=== PATIENT | male | born 1975 | race Hispanic/Latino ===

== ENCOUNTER 2019-12-27 20:15 | Inpatient (IN) | payer SELFPAY ==
[~2019-12-27] VITALS: Ht 165.1 cm; Wt 65.6 kg
[2019-12-27] MEDS ORDERED: ACETAMINOPHEN 325 MG TAB PO ONE (20:45)
[2019-12-27] MEDS ORDERED: SODIUM CHLORIDE 0.9% 1000ML 1,000 ML IV STA (20:54)
[2019-12-27] MEDS ORDERED: FAMOTIDINE 20 MG/2 ML VIAL IV STA (20:54)
[2019-12-27 20:57] LABS: BASOPHILS % 0.2 % (0.0-1.0); EOSINOPHILS % 0.1 % (0.0-6.0); HEMATOCRIT 44.4 % (38.2-49.6); HEMOGLOBIN 15.1 g/dL (14.0-18.0); LYMPHOCYTES # (AUTO) 1.1 (1.0-3.2); LYMPHOCYTES % 8.2 % (18.0-39.1); MEAN CORPUSCULAR HEMOGLOBIN 30.4 pg (28-32); MEAN CORPUSCULAR VOLUME 89.3 fL (81-99); MONOCYTES # (AUTO) 1.2 (0.2-0.8); MONOCYTES % 9.5 % (4.4-11.3); NEUTROPHILS # (AUTO) 10.4 (2.1-6.9); NEUTROPHILS % 81.5 % (38.7-80.0); PLATELET COUNT 205 x10e3/uL (140-360); RED BLOOD COUNT 4.97 x10e6/uL (4.3-5.7); RED CELL DISTRIBUTION WIDTH 12.5 % (11.7-14.4)
[2019-12-27 20:59] LABS: BILIRUBIN,URINE 1+ (NEGATIVE); CLARITY,URINE SL CLOUDY (CLEAR); COLOR,URINE STRAW (YELLOW); KETONES,URINE 2+ (NEGATIVE); LEUKOCYTE ESTERASE ,URINE NEGATIVE (NEGATIVE); NITRITE,URINE NEGATIVE (NEGATIVE); PROTEIN,URINE DIPSTICK NEGATIVE (NEGATIVE); URINE UROBILINOGEN 0.2 mg/dL (0.2 - 1)
[2019-12-27] MEDS ORDERED: DIATRIZOATE MEGL/DIATRIZOA SOD 30 ML BTL PO ONE (20:59)
[2019-12-27] MEDS ORDERED: PIPER-TAZ 3.375 GM 50 ML IV STA (21:03)
[2019-12-27 21:10] LABS: ALANINE AMINOTRANSFERASE 49 IU/L (0-55); ALBUMIN 4.5 g/dL (3.5-5.0); ALBUMIN/GLOBULIN RATIO 1.4 (0.8-2.0); ALKALINE PHOSPHATASE 70 IU/L (40-150); ANION GAP 14.5 mmol/L (8-16); BLOOD UREA NITROGEN 10 mg/dL (7-26); BUN/CREATININE RATIO 9 (6-25); CALCIUM 9.3 mg/dL (8.4-10.2); CARBON DIOXIDE 24 mmol/L (22-29); CHLORIDE 103 mmol/L (98-107); CREATININE, SERUM 1.06 mg/dL (0.72-1.25); EST GLOMERULAR FILTRATION RATE > 60 ML/MIN (60-); GLUCOSE 98 mg/dL (74-118); POTASSIUM 3.5 mmol/L (3.5-5.1); SODIUM 138 mmol/L (136-145)
[2019-12-27 21:15] LABS: BACTERIA,URINE MODERATE /HPF; EPITHELIAL CELLS,URINE MODERATE /LPF; MUCUS,URINE MODERATE (RARE)
[2019-12-27] MEDS ORDERED: IOPAMIDOL 370 MG/ML 200 ML INFUS..BTL INJ ONE (22:23)
[2019-12-27] MEDS ORDERED: SODIUM CHLORIDE 0.9% 50ML 50 ML ONE (22:24)
--- NOTE | 2019-12-27 23:52 | Diagnostic Imaging Report ---
CT Abdomen And Pelvis with Intravenous Contrast INDICATION: Right upper abdominal pain/fever, history of diverticulitis ^PAIN ^20191227 ^2 TECHNIQUE: Thin collimation axial images obtained from the diaphragm to the level of the pubic symphysis following the uneventful administration of 100 cc of low osmolar, nonionic intravenous contrast. Enteric contrast was also administered. Dose reduction techniques used: Automated exposure control, adjustment of the mAs and/or kVp according to patient size, standardized low-dose protocol, and/or iterative reconstruction technique. RADIATION DOSE: Total DLP: 250.3 mGy*cm Estimated effective dose: (DLP x 0.015 x size factor) mSv CTDIvol has been reviewed. It is below the limits set by the Radiation Protocol Committee (RPC). COMPARISON: None. ABDOMEN FINDINGS: Lung Bases: Clear. The visualized portions of the mediastinum are normal.. Liver: Normal attenuation. Several low attenuating lesions measure up to 11 mm and may represent cysts. A few subcentimeter solid lesions cannot be excluded. Gallbladder: Present and appears normal. No biliary ductal dilatation. Pancreas: Normal attenuation without mass or ductal dilatation. Spleen: Normal in size. No evidence of mass.. Adrenal Glands: No evidence for mass. Kidneys: Right: Normal enhancement. No soft tissue mass. No hydronephrosis. Left: Normal enhancement. No soft tissue mass. No hydronephrosis. Lymph Nodes: There is a 9 mm inferior mesenteric vein lymph node. No enlarged upper abdominal or retroperitoneal lymph nodes. Aorta: Normal in diameter PELVIS FINDINGS: Bowel: Stomach: Contains enteric contrast and is normal. Small Bowel: There is enteric contrast extending to the terminal ileum. Intussusception of the proximal jejunum. Large Bowel: Enteric contrast extends to the mid descending colon. There are diverticula in the descending colon and sigmoid colon. 7-8 cm segment of mural thickening of the mid sigmoid colon resulting in luminal narrowing. There is adjacent pericolonic inflammation. A low attenuating lesion or fluid collection within the inferior wall of the mid sigmoid colon measures 1.2 x 2.3 cm. No significant mural hyperemia. Appendix: Normal. Bladder: No intraluminal air. Mild thickening of the bladder dome. There is inflammation of the fat plane between the sigmoid colon and bladder dome. Peritoneum/retroperitoneum: No free fluid or fluid collection.. Bones: Mild degenerative changes of the spine at L5-S1. There is a bone island in the posterior left acetabulum. Soft tissues: Small fat-containing left inguinal hernia. IMPRESSION: 1. Acute/subacute diverticulitis of the mid sigmoid colon with intramural diverticular abscess. Colonoscopy is recommended to exclude neoplasm. 2. Reactive thickening of the bladder dome secondary to diverticulitis. No CT evidence of fistulous communication the sigmoid colon. 3. Intussusception of the jejunum, likely transient, given the absence of bowel obstruction. 4. Several low attenuating subcentimeter hepatic lesions are too small to characterize. These may be better characterized on an outpatient liver MRI. Signed by: Dr. Orquidea Campbell MD on 12/27/2019 11:49 PM
[2019-12-28] VITALS (10 sets, daily range): BP systolic 114–136; BP diastolic 57–88
[2019-12-28] MEDS ORDERED: MORPHINE SULFATE 2 MG/ML SYR 1ML IV PRN (00:30)
[2019-12-28] MEDS ORDERED: CIPROFLOXACIN 400 MG/D5W 200ML 200 ML IV ONE (00:30)
[2019-12-28] MEDS ORDERED: ONDANSETRON HCL INJ 2MG/ML 2ML 2 MG/ML VIAL IV PRN (00:30)
[2019-12-28] MEDS ORDERED: METRONIDAZOLE 500MG/NS 100ML 100 ML IV ONE (00:30)
[2019-12-28] MEDS: SODIUM CHLORIDE 0.9% 1000ML 1,000 ML IV SCH ×3 (00:36→15:43)
--- OUTSIDE RECORDS SUMMARY | 2019-12-28 00:43 | XMS REPORT ---
Author [facility] Address Unknown Phone Unavailable Care Team Providers Care Line Prep Cook Name Role Phone BOLA VALENCIA Unavailable Unavailable Problems This patient has no known problems. Allergies, Adverse Reactions, Alerts This patient has no known allergies or adverse reactions. Medications This patient has no known medications. Results Test Description Test Time Test Comments Text Results Atomic Results Result Comments CT ABDOMEN/PELVIS W 2019-12-27 23:38:00 [place] [address] Patient Name: GUILLERMO PIZARRO MR #: [id number] : 1975 Age/Sex: 44/M Req #: [id number] Adm Physician: Ordered by: MARINA BERNAL NP Report #: [id number] Location: ER Room/Bed: Procedure: [id number] CT/CT ABDOMEN/PELVIS W Exam Date: 12/27/19 Exam Time: 2234 REPORT STATUS: Signed CT Abdomen And Pelvis with Intravenous Contrast I NDICATION: Right upper abdominal pain/fever, history of diverticulitis PAIN 20191227 TECHNIQUE: Thin collimation axial images obtained from the diaphragm to the level of the pubic symphysis following the uneventful administration of 100 cc of low osmolar, nonionic intravenous contrast. Enteric contrast was also administered. Dose reduction techniques used: Automated exposure control, adjustment of the mAs and/or kVp according to patient size, standardized low-dose protocol, and/or iterative reconstruction technique. RADIATION DOSE: Total DLP: 250.3 mGy*cm Estimated effective dose: (DLP x 0.015 x size factor) mSv CTDIvol has been reviewed. It is below the limits set by the Radiation Protocol Committee (RPC). COMPARISON: None. ABDOMEN FINDINGS: Lung Bases: Clear. The visualized portions of the mediastinum are normal.. Liver: Normal attenuation. Several low attenuating lesions measure up to 11 mm and may represent cysts. A few subcentimeter solid lesions cannot be excluded. Gallbladder: Present and appears normal. No biliary ductal dilatation. Pancreas: Normal attenuation without mass or ductal dilatation. Spleen: Normal in size. No evidence of mass.. Adrenal Glands: No evidence for mass. Kidneys: Right: Normal enhancement. No soft tissue mass. No hydronephrosis. Left: Normal enhancement. No soft tissue mass. No hydronephrosis. Lymph Nodes: There is a 9 mm inferior mesenteric vein lymph node. No enlarged upper abdominal or retroperitoneal lymph nodes. Aorta: Normal in diameter PELVIS FINDINGS: Bowel: Stomach: Contains enteric contrast and is normal. Small Bowel: There is enteric contrast extending to the terminal ileum. Intussusception of the proximal jejunum. Large Bowel: Enteric contrast extends to the mid descending colon. There are diverticula in the descending colon and sigmoid colon. 7-8 cm segment of mural thickening of the mid sigmoid colon resulting in luminal narrowing. There is adjacent pericolonic inflammation. A low attenuating lesion or fluid collection within the inferior wall of the mid sigmoid colon measures 1.2 x 2.3 cm. No significant mural hyperemia. Appendix: Normal. Bladder: No intraluminal air. Mild thickening of the bladder dome. There is inflammation of the fat plane between the sigmoid colon and bladder dome. Peritoneum/retroperitoneum: No free fluid or fluid collection.. Bones: Mild degenerative changes of the spine at L5-S1. There is a bone island in the posterior left acetabulum. Soft tissues: Small fat-containing left inguinal hernia. IMPRESSION: 1. Acute/subacute diverticulitis of the mid sigmoid colon with intramural diverticular abscess. Colonoscopy is recommended to exclude neoplasm. 2. Reactive thickening of the bladder dome secondary to diverticulitis. No CT evidence of fistulous communication the sigmoid colon. 3. Intussusception of the jejunum, likely transient, given the absence of bowel obstruction. 4. Several low attenuating subcentimeter hepatic lesions are too small to characterize. These may be better characterized on an outpatient liver MRI. Signed by: Dr. Marciano Campbell MD on 12/27/2019 11:49 PM Dictated By: MARCIANO CAMPBELL MD 48 Transcribed By: MAYE on 12/27/192348 COPY TO: MARINA BERNAL NP
--- NOTE | 2019-12-28 00:50 | NUR ---
Recieved patient from ER via stretcher. Patient stable, oriented to room and environment. Instructed to call for assistance or on the onset of pain or SOB. Call light within reach. Will continue to monitor.
--- NOTE | 2019-12-28 07:00 | NUR ---
PATIENT IS ALERT, AWAKE, AND IN STABLE CONDITION WITH NO S/S OF RESPIRATORY DISTRESS. PATIENT C/O ABD DISCOMFORT 5/10 BUT IS REFUSING PAIN MEDICATION AT THIS TIME. IV FLUIDS INFUSING. CALL LIGHT IS WITHIN REACH, PATIENT INSTRUCTED TO CALL FOR ASSISTANCE NEEDED.
--- NOTE | 2019-12-28 07:10 | NUR ---
Bedside report and rounding completed with oncoming nurse. Patient in bed with call light within reach. Bed locked and in lowest position. No issues or concerns noted.
[2019-12-28] MEDS ORDERED: METRONIDAZOLE 500MG/NS 100ML 100 ML IV SCH (09:00)
[2019-12-28] MEDS ORDERED: CIPROFLOXACIN 400 MG/D5W 200ML 200 ML IV SCH (12:00)
[2019-12-28] MEDS: CIPROFLOXACIN 400 MG/D5W 200ML 200 ML IV SCH (12:22)
--- NOTE | 2019-12-28 12:40 | NUR ---
Pt. expressed no spiritual or emotional concerns at this time. Pt requested reading material. Provided oriental orthodox reading material and information on how to reach general lot attendant, if needed. Pt expressed appreciation for visit. No need to follow at this time. HANS ALVAREZ Compliance Tester Spiritual Care Department O: [phone]
--- NOTE | 2019-12-28 15:24 | NUR ---
GAVE PACKET OF INFORMATION WITH COMMUNITY RESOURCES FOR ASSISTANCE WITH LOW TO NO INCOME TO PATIENT. RESOURCES THAT PATIENT MAY BE ABLE TO FOLLOW UP UPON DISCHARGE. PT EDUCATED ON EACH RESOURCE AND UNDERSTANDING HOW TO FOLLOW UP TO SEE IF QUALIFIED FOR EACH RESOURCE.
[2019-12-28] MEDS: METRONIDAZOLE 500MG/NS 100ML 100 ML IV SCH (15:42)
--- NOTE | 2019-12-28 19:15 | NUR ---
Bedside report and rounding completed with offgoing nurse. Patient in bed with call light within reach. Bed locked and in lowest position. No issues or concerns noted.
--- NOTE | 2019-12-28 19:19 | NUR ---
PATIENT IN STABLE CONDITION WITH NO S/S OF RESPIRATORY DISTRESS. NO PAIN VOICED. IV FLUIDS INFUSING. CALL LIGHT IS WITHIN REACH, PATIENT INSTRUCTED TO CALL FOR ASSISTANCE NEEDED. BEDSIDE SHIFT REPORT GIVEN TO ONCOMING NURSE.
--- NOTE | 2019-12-28 19:43 | NUR ---
Patient requesting tylenol. Spoke with Ildefonso regarding request. Will put in new order for tylenol.
[2019-12-28] MEDS: ACETAMINOPHEN 325 MG TAB PO PRN (20:23)
[2019-12-29] VITALS (7 sets, daily range): BP systolic 106–149; BP diastolic 58–97
[2019-12-29] MEDS: CIPROFLOXACIN 400 MG/D5W 200ML 200 ML IV SCH ×2 (01:00→11:50)
[2019-12-29] MEDS: SODIUM CHLORIDE 0.9% 1000ML 1,000 ML IV SCH ×2 (02:01→16:18)
[2019-12-29] MEDS: METRONIDAZOLE 500MG/NS 100ML 100 ML IV SCH ×2 (04:32→16:00)
[2019-12-29 05:56] LABS: BASOPHILS % 0.3 % (0.0-1.0); EOSINOPHILS # (AUTO) 0.1 (0.0-0.4); EOSINOPHILS % 0.8 % (0.0-6.0); HEMATOCRIT 42.4 % (38.2-49.6); HEMOGLOBIN 14.1 g/dL (14.0-18.0); LYMPHOCYTES # (AUTO) 1.2 (1.0-3.2); LYMPHOCYTES % 13.4 % (18.0-39.1); MEAN CORPUSCULAR HEMOGLOBIN 30.4 pg (28-32); MEAN CORPUSCULAR HGB CONC 33.3 g/dL (31-35); MEAN CORPUSCULAR VOLUME 91.4 fL (81-99); MONOCYTES # (AUTO) 1.3 (0.2-0.8); MONOCYTES % 14.7 % (4.4-11.3); NEUTROPHILS # (AUTO) 6.1 (2.1-6.9); NEUTROPHILS % 70.3 % (38.7-80.0); PLATELET COUNT 184 x10e3/uL (140-360); RED BLOOD COUNT 4.64 x10e6/uL (4.3-5.7); RED CELL DISTRIBUTION WIDTH 12.8 % (11.7-14.4)
[2019-12-29] MEDS: ACETAMINOPHEN 325 MG TAB PO PRN (06:00)
[2019-12-29 06:31] LABS: ALANINE AMINOTRANSFERASE 33 IU/L (0-55); ALBUMIN 3.4 g/dL (3.5-5.0); ALBUMIN/GLOBULIN RATIO 1.1 (0.8-2.0); ALKALINE PHOSPHATASE 58 IU/L (40-150); ANION GAP 13.5 mmol/L (8-16); BLOOD UREA NITROGEN 6 mg/dL (7-26); BUN/CREATININE RATIO 7 (6-25); CALCIUM 8.5 mg/dL (8.4-10.2); CARBON DIOXIDE 26 mmol/L (22-29); CHLORIDE 106 mmol/L (98-107); CHOL/HDL RATIO 4.5 (3.9-4.7); CHOLESTEROL 161 MD/DL (0-199); CREATININE, SERUM 0.83 mg/dL (0.72-1.25); EST GLOMERULAR FILTRATION RATE > 60 ML/MIN (60-); GLUCOSE 99 mg/dL (74-118); HDL CHOLESTEROL 36 MG/DL (40-60); LDL CHOLESTEROL 112 MG/DL (60-130); MAGNESIUM 1.7 MG/DL (1.3-2.1); POTASSIUM 3.5 mmol/L (3.5-5.1); SODIUM 142 mmol/L (136-145); TRIGLYCERIDES 65 MG/DL (0-149)
[2019-12-29 06:54] LABS: THYROID STIMULATING HORMONE 0.431 uIU/mL (0.350-4.940)
--- NOTE | 2019-12-29 07:20 | NUR ---
PT UP IN BED NO DISTRESS NOTED DENIES PAIN,DR KUMAR HERE NO NEW ORDERS
--- NOTE | 2019-12-29 09:05 | Diagnostic Imaging Report ---
EXAM: US GALLBLADDER DATE: 12/29/2019 12:00 AM INDICATION: Abdominal pain COMPARISON: CT abdomen/pelvis with contrast from 12/27/2019 FINDINGS: The visualized pancreas appears unremarkable. The liver is normal in size measuring 14.6 cm in length. Hepatic echogenicity is within normal limits. There is a 1.2 x 0.9 x 1.3 cm well-defined, echogenic lesion identified within the left hepatic lobe. This lesion likely correlates with the small low-attenuation lesion noted on the recent prior CT examination. Additionally, there are 2 anechoic cysts identified within the right hepatic lobe measuring 1.1 and 1.0 cm. The main portal vein is patent with antegrade flow and diameter of 0.9 cm, within normal limits. The gallbladder is unremarkable. There is no evidence for cholelithiasis, gallbladder wall thickening, or pericholecystic fluid. There is no intra or extra hepatic biliary ductal dilatation. The common bile duct measures 3 mm. Sonographic Medrano's sign is negative. The right kidney is normal in size measuring 10.9 x 4.8 x 4.1 cm with normal cortical thickness and echogenicity. There is no evidence for solid renal, hydronephrosis, or shadowing likely within the right kidney. The visualized portions the IVC and aorta are within normal limits. There is no ascites visualized. IMPRESSION: Well-defined, echogenic lesion identified within the left hepatic lobe measuring up to 1.3 cm which is not definitively characterized on this examination but may represent a hemangioma. If patient has history of hepatic dysfunction or prior malignancy, recommend further evaluation with dedicated liver CT or MRI. Otherwise, unremarkable renal ultrasound examination. Signed by: Dr. Quirino Unger MD on 12/29/2019 9:02 AM
[2019-12-29] MEDS ORDERED: POTASSIUM CHLORIDE 20 MEQ TAB CR PO ONE (10:35)
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
--- NOTE | 2019-12-29 12:30 | NUR ---
PT UP IN BED DENIES PAIN,NO DISTRESS NOTED.
--- NOTE | 2019-12-29 17:23 | NUR ---
NO CHANGE IN STATUS,NO C/O PAIN.
--- NOTE | 2019-12-29 20:00 | NUR ---
Received change of shift report from AM nurse. Walking rounds completed.
[2019-12-30] VITALS (8 sets, daily range): BP systolic 113–134; BP diastolic 69–90
--- NOTE | 2019-12-30 | NUR ---
Patient up to the shower with no difficulty noted.
[2019-12-30] MEDS: METRONIDAZOLE 500MG/NS 100ML 100 ML IV SCH (04:04)
[2019-12-30] MEDS: SODIUM CHLORIDE 0.9% 1000ML 1,000 ML IV SCH ×2 (04:37→23:21)
--- NOTE | 2019-12-30 05:07 | NUR ---
Patient resting quitly at this time. Continue monitor.
--- NOTE | 2019-12-30 07:30 | NUR ---
PATIENT IN BED SLEEPING. NO S/S OF DISCOMFORT. RESP EVEN.
--- NOTE | 2019-12-30 08:30 | NUR ---
DR. KUMAR AT BEDSIDE. ORDERS WRITTEN.
[2019-12-30] MEDS ORDERED: CITRATE OF MAGNESIA 300ML BOTTLE PO SCH (08:50)
--- NOTE | 2019-12-30 11:37 | NUR ---
Consent form signed. Patient acknowledge understanding.
[2019-12-30] MEDS: NEOMYCIN SULFATE 500 MG TAB PO SCH ×3 (12:00→23:21)
[2019-12-30] MEDS: METRONIDAZOLE 500 MG TAB PO SCH ×3 (12:00→23:21)
[2019-12-30] MEDS: CIPROFLOXACIN 400 MG/D5W 200ML 200 ML IV SCH ×3 (13:08→23:21)
[2019-12-30] MEDS ORDERED: MINERAL OIL 132 ML BTL PR SCH (14:00)
--- NOTE | 2019-12-30 17:27 | NUR ---
PT UP IN BED NO DISTRESS NOTED ,DENIES PAIN
[2019-12-31] VITALS (8 sets, daily range): BP systolic 96–144; BP diastolic 57–76
--- NOTE | 2019-12-31 06:00 | NUR ---
PATIENT NOT WILLING TO TAKE CHG SHOWER THROUGHOUT NIGHT, STATES HE WILL DO IT AROUND 10 AM, STOOLS MOSTLY LOOSE/CLEAR WITH SMALL PIECES OF SOFT/SOLID STOOL
[2019-12-31 07:10] LABS: BASOPHILS % 0.7 % (0.0-1.0); EOSINOPHILS # (AUTO) 0.1 (0.0-0.4); EOSINOPHILS % 1.3 % (0.0-6.0); HEMATOCRIT 44.7 % (38.2-49.6); HEMOGLOBIN 15.3 g/dL (14.0-18.0); LYMPHOCYTES # (AUTO) 1.6 (1.0-3.2); MEAN CORPUSCULAR HEMOGLOBIN 30.7 pg (28-32); MEAN CORPUSCULAR HGB CONC 34.2 g/dL (31-35); MEAN CORPUSCULAR VOLUME 89.6 fL (81-99); MONOCYTES # (AUTO) 0.7 (0.2-0.8); MONOCYTES % 11.4 % (4.4-11.3); NEUTROPHILS # (AUTO) 3.6 (2.1-6.9); NEUTROPHILS % 60.3 % (38.7-80.0); PLATELET COUNT 233 x10e3/uL (140-360); RED BLOOD COUNT 4.99 x10e6/uL (4.3-5.7); RED CELL DISTRIBUTION WIDTH 12.4 % (11.7-14.4)
[2019-12-31 07:28] LABS: ANION GAP 13.2 mmol/L (8-16); BLOOD UREA NITROGEN 9 mg/dL (7-26); BUN/CREATININE RATIO 11 (6-25); CARBON DIOXIDE 24 mmol/L (22-29); CHLORIDE 107 mmol/L (98-107); CREATININE, SERUM 0.83 mg/dL (0.72-1.25); EST GLOMERULAR FILTRATION RATE > 60 ML/MIN (60-); GLUCOSE 83 mg/dL (74-118); MAGNESIUM 1.9 MG/DL (1.3-2.1); PHOSPHORUS 3.6 MG/DL (2.3-4.7); POTASSIUM 4.2 mmol/L (3.5-5.1); SODIUM 140 mmol/L (136-145)
[2019-12-31] MEDS: SODIUM CHLORIDE 0.9% 1000ML 1,000 ML IV SCH (09:14)
[2019-12-31] MEDS: METRONIDAZOLE 500MG/NS 100ML 100 ML IV SCH ×2 (09:15→21:00)
[2019-12-31] MEDS: CIPROFLOXACIN 400 MG/D5W 200ML 200 ML IV SCH ×2 (12:15→23:21)
[2019-12-31] MEDS ORDERED: BUPIVACAINE HCL 0.5% INJ 30 ML VIAL INJ ONE (12:24)
--- NOTE | 2019-12-31 12:24 | NUR ---
Pt being transferred to OR at this time for procedure with Dr. Ga. Pt is aox4 and able to verbalize needs. Pt denies any pain at time of transfer. 0 s/s of acute distress noted.
[2019-12-31] MEDS ORDERED: NALOXONE HCL INJ 0.4 MG/ML AMP IV PRN (14:15)
[2019-12-31] MEDS ORDERED: KETOROLAC TROMETHAMINE 30 MG/ML VIAL IV PRN (14:15)
[2019-12-31] MEDS ORDERED: ACETAMINOPHEN 1000 MG/100 ML IV PRN (14:15)
[2019-12-31] MEDS ORDERED: DIPHENHYDRAMINE HCL 25 MG CAP PO PRN (14:15)
[2019-12-31] MEDS ORDERED: MEPERIDINE HCL INJ 25 MG/ML VIAL ONE (14:29)
--- NOTE | 2019-12-31 15:00 | NUR ---
Pt received from PACU at this time. Pt is aox3, pt is still a little drowsy but wakes easily. Dressing to lower abdomen is intact with a little bit of dry blood noted. Ruiz catheter in place and draining light yellow clear urine.
[2019-12-31] MEDS ORDERED: DEXAMETHASONE SOD PHOS INJ 4 MG/ML VIAL ONE (15:17)
[2019-12-31] MEDS ORDERED: PROPOFOL IV EMULSION 10 MG/ML 20 ML VIAL ONE (15:17)
[2019-12-31] MEDS ORDERED: GLYCOPYRROLATE INJ 0.2 MG/ML VIAL ONE (15:17)
[2019-12-31] MEDS ORDERED: LIDOCAINE HCL 2% LOCAL INJ 5 ML SDV VIAL INJ ONE (15:17)
[2019-12-31] MEDS ORDERED: ROCURONIUM BROMIDE 10 MG/ML 5ML VIAL IV ONE (15:17)
[2019-12-31] MEDS ORDERED: ONDANSETRON HCL INJ 2MG/ML 2ML 2 MG/ML VIAL ONE (15:17)
[2019-12-31] MEDS ORDERED: SEVOFLURANE INHAL SOLN 250 ML PEN BTL ONE (15:17)
[2019-12-31] MEDS ORDERED: NEOSTIGMINE 1 MG/ML 10ML VIAL ONE (15:17)
[2019-12-31] MEDS ORDERED: KETOROLAC TROMETHAMINE 30 MG/ML VIAL ONE (15:17)
[2019-12-31] MEDS ORDERED: MORPHINE SULFATE INJ 10 MG/ML ONE (15:54)
[2019-12-31] MEDS ORDERED: FENTANYL CITRATE/PF 100MCG/2 ML INJ ONE (15:54)
[2019-12-31] MEDS ORDERED: MIDAZOLAM HCL 2 MG/2 ML VIAL ONE (15:54)
[2019-12-31] MEDS: DEXTROSE 5%/LACTATED RINGERS 1,000 ML IV SCH ×2 (16:50→23:00)
[2019-12-31] MEDS: HYDROMORPHONE 0.2MG/ML-SOD CHL 30ML PCA SYRINGE IV PRN (17:22)
--- NOTE | 2019-12-31 17:56 | NUR ---
RCD PT FROM [facility] ,PT IS ALERT AND ORIENTED VITALS CHECKED PT ON BROCK DRAINING WELL ,INFECTION PREVENTIONIST DILAUDID AND IV FLUIDS ,NO SIGNS OF BLEEDING ON THE SURGICAL SITE BED LOW AND LOCKED CALL LIGHT IN REACH
--- NOTE | 2019-12-31 18:10 | NUR ---
Pt transferred to room 105 at this time. Report given to nurse who will continue his care. Family notified of move.
--- NOTE | 2019-12-31 18:43 | NUR ---
PT RESTING ON BED BED SIDE REPORT GIVEN TO ONCOMING NURSE
--- NOTE | 2019-12-31 19:13 | Operative Report ---
DATE OF PROCEDURE: 12/31/2019 SURGEON: Juan Carlos Ga MD PREOPERATIVE DIAGNOSIS: [id number] sigmoid diverticulitis. POSTOPERATIVE DIAGNOSIS: [id number] sigmoid diverticulitis. PROCEDURES: Diagnostic laparoscopy, laparoscopic-assisted sigmoid colon resection. CHIP WASHER: None. ANESTHESIA: General endotracheal. INDICATIONS AND FINDINGS: The patient is a 44-year-old male, who presented with complaints of abdominal pain in the lower abdomen. He has had episodes of pain several times in the past. Workup revealed inflamed segment of sigmoid colon. At Surgery, there was inflamed thickened sigmoid colon in the mid sigmoid colon, which was adherent to the anterior abdominal wall with a mass in this area. There was inflammatory changes in the pericolonic fat colon proximal and distal to this was not inflamed. The remainder of laparoscopy is unremarkable. TECHNIQUE: After adequate general endotracheal anesthesia, the patient in supine position, the legs in the stirrups. The abdomen was prepped and draped in sterile fashion with ChloraPrep solution. The perineum was prepped and draped with Betadine solution. Skin just below the umbilicus was infiltrated with 0.5% Marcaine. Incision was made and abdominal wall was elevated, and Veress needle was introduced. Pneumoperitoneum was then created. A 10 mm trocar and cannula was then passed through the umbilical wound. Laparoscopic camera was introduced. Initial laparoscopy revealed inflamed segment of sigmoid colon, which was in the mid sigmoid adherent to the abdominal wall, which was densely adherent with somewhat fibrotic. There was small amount of fluid in the upper abdomen, which appear clear serous fluid. 5 mm trocar and cannula were placed in the epigastrium and a 5 mm trocar and cannula were placed in the lower abdomen just to the right of the midline. The proximal colon from the splenic flexure distally was mobilized by dividing the peritoneal attachments down to the area of the inflamed segment. The left ureter was identified and preserved. There was dense inflammation around the colon, it could not be free laparoscopically. Lower midline incision was made. The peritoneal cavity was entered and inflamed segment of colon was freed from the abdominal wall using electrocautery, this was in the mid sigmoid. The sigmoid colon was resected. The colon proximal and distal, this was not inflamed. The colon proximal to this inflamed segment was divided with a JACK stapler as was the colon distal with the margins of about 5 cm and the mesentery divided with LigaSure device and the specimen was removed. The anastomosis was made between the proximal and distal colon with a JACK stapler and TL60 stapler. Hemostasis was seen to be adequate. The wound was then irrigated with saline, inspected for hemostasis, which was seen to be adequate. The midline fascia was then closed with running suture of #1 PDS. Subcutaneous tissue was irrigated with saline. Skin was closed with esthela to all wounds. Sterile dressing was applied. The patient tolerated the procedure well. Estimated blood loss was 75 mL. There were no complications. All counts were correct. The patient was taken to the recovery room in satisfactory condition. MD NGA ValdezG/MODL /[id number] cc: MD Willy Turk MD
[2019-12-31] MEDS: ONDANSETRON HCL INJ 2MG/ML 2ML 2 MG/ML VIAL IV PRN (23:50)
[2020-01-01] VITALS (8 sets, daily range): BP systolic 112–133; BP diastolic 68–88
[2020-01-01] MEDS: DEXTROSE 5%/LACTATED RINGERS 1,000 ML IV SCH ×3 (02:33→22:40)
[2020-01-01 05:07] LABS: BASOPHILS % 0.2 % (0.0-1.0); EOSINOPHILS % 0.1 % (0.0-6.0); HEMATOCRIT 38.4 % (38.2-49.6); HEMOGLOBIN 13.2 g/dL (14.0-18.0); LYMPHOCYTES # (AUTO) 0.8 (1.0-3.2); LYMPHOCYTES % 9.2 % (18.0-39.1); MEAN CORPUSCULAR HEMOGLOBIN 30.5 pg (28-32); MEAN CORPUSCULAR HGB CONC 34.4 g/dL (31-35); MEAN CORPUSCULAR VOLUME 88.7 fL (81-99); MONOCYTES % 11.8 % (4.4-11.3); NEUTROPHILS # (AUTO) 6.6 (2.1-6.9); NEUTROPHILS % 78.2 % (38.7-80.0); PLATELET COUNT 221 x10e3/uL (140-360); RED BLOOD COUNT 4.33 x10e6/uL (4.3-5.7); RED CELL DISTRIBUTION WIDTH 12.1 % (11.7-14.4)
[2020-01-01 05:39] LABS: ANION GAP 12.8 mmol/L (8-16); BLOOD UREA NITROGEN 6 mg/dL (7-26); BUN/CREATININE RATIO 8 (6-25); CALCIUM 8.3 mg/dL (8.4-10.2); CARBON DIOXIDE 25 mmol/L (22-29); CHLORIDE 103 mmol/L (98-107); CREATININE, SERUM 0.77 mg/dL (0.72-1.25); EST GLOMERULAR FILTRATION RATE > 60 ML/MIN (60-); GLUCOSE 133 mg/dL (74-118); MAGNESIUM 1.5 MG/DL (1.3-2.1); PHOSPHORUS 2.6 MG/DL (2.3-4.7); POTASSIUM 3.8 mmol/L (3.5-5.1); SODIUM 137 mmol/L (136-145)
--- NOTE | 2020-01-01 06:41 | NUR ---
VINOD CANDELARIA DC'D PER ORDER
--- NOTE | 2020-01-01 06:42 | NUR ---
SPOKE TO DR. KUMAR REGARDING PATIENT C/O REFLUX. NEW ORDER RECEIVED FOR PEPCID 20MG PO BID
--- NOTE | 2020-01-01 07:05 | NUR ---
RCD PT AT BED PT IS ALERT AND ORIENTED PT RESTING ON BED NO SIGNS OF ANY DISTRESS NOTED IV PATENT PT IN AMMONIA TECHNICIAN DILAUDID BED LOW AND LOCKED CALL LIGHT IN REACH
[2020-01-01] MEDS: ONDANSETRON HCL INJ 2MG/ML 2ML 2 MG/ML VIAL IV PRN (07:10)
[2020-01-01] MEDS: FAMOTIDINE 20 MG TAB PO SCH ×2 (07:10→16:28)
--- NOTE | 2020-01-01 08:00 | NUR ---
PT VOIDED AFTER BROCK
[2020-01-01] MEDS: METRONIDAZOLE 500MG/NS 100ML 100 ML IV SCH ×2 (09:00→20:51)
--- NOTE | 2020-01-01 10:00 | NUR ---
PT AMBULATED WITH ASSISTANCE
[2020-01-01] MEDS: CIPROFLOXACIN 400 MG/D5W 200ML 200 ML IV SCH (12:00)
[2020-01-01] MEDS: HYDROMORPHONE 0.2MG/ML-SOD CHL 30ML PCA SYRINGE IV PRN (15:15)
--- NOTE | 2020-01-01 18:40 | NUR ---
PT RESTING ON BED BED SIDE REPORT GIVEN TO ONCOMING NURSE
[2020-01-02] VITALS (8 sets, daily range): BP systolic 106–124; BP diastolic 62–79
[2020-01-02] MEDS: ONDANSETRON HCL INJ 2MG/ML 2ML 2 MG/ML VIAL IV PRN ×3 (00:45→12:41)
[2020-01-02 05:21] LABS: BASOPHILS % 0.5 % (0.0-1.0); EOSINOPHILS # (AUTO) 0.1 (0.0-0.4); EOSINOPHILS % 0.6 % (0.0-6.0); HEMATOCRIT 39.3 % (38.2-49.6); HEMOGLOBIN 13.6 g/dL (14.0-18.0); LYMPHOCYTES # (AUTO) 1.7 (1.0-3.2); LYMPHOCYTES % 21.4 % (18.0-39.1); MEAN CORPUSCULAR HEMOGLOBIN 30.6 pg (28-32); MEAN CORPUSCULAR HGB CONC 34.6 g/dL (31-35); MEAN CORPUSCULAR VOLUME 88.5 fL (81-99); MONOCYTES % 12.3 % (4.4-11.3); NEUTROPHILS # (AUTO) 5.1 (2.1-6.9); NEUTROPHILS % 64.8 % (38.7-80.0); PLATELET COUNT 238 x10e3/uL (140-360); RED BLOOD COUNT 4.44 x10e6/uL (4.3-5.7); RED CELL DISTRIBUTION WIDTH 12.1 % (11.7-14.4)
[2020-01-02 05:40] LABS: ANION GAP 10.7 mmol/L (8-16); BLOOD UREA NITROGEN < 5 mg/dL (7-26); BUN/CREATININE RATIO 6 (6-25); CARBON DIOXIDE 32 mmol/L (22-29); CHLORIDE 102 mmol/L (98-107); CREATININE, SERUM 0.85 mg/dL (0.72-1.25); EST GLOMERULAR FILTRATION RATE > 60 ML/MIN (60-); GLUCOSE 116 mg/dL (74-118); MAGNESIUM 1.6 MG/DL (1.3-2.1); POTASSIUM 3.7 mmol/L (3.5-5.1); SODIUM 141 mmol/L (136-145)
[2020-01-02] MEDS: DEXTROSE 5%/LACTATED RINGERS 1,000 ML IV SCH ×3 (07:00→21:33)
--- NOTE | 2020-01-02 07:10 | NUR ---
RCD PT AT BED PT IS ALERT AND ORIENTED PT RESTING ON BED NO SIGNS OF ANY DISTRESS NOTED IV PATENT PT IN BRUSH MATERIAL PREPARER DILAUDID BED LOW AND LOCKED CALL LIGHT IN REACH
[2020-01-02] MEDS: FAMOTIDINE 20 MG TAB PO SCH ×2 (07:30→16:30)
[2020-01-02] MEDS: METRONIDAZOLE 500MG/NS 100ML 100 ML IV SCH ×2 (09:00→20:31)
--- NOTE | 2020-01-02 09:56 | NUR ---
DC HIGH [employer]CHOOL CHEMISTRY TEACHER BY ORDER WASTE WITNESSED BY ANOTHER RN
[2020-01-02] MEDS ORDERED: HYDROCODONE/APAP 7.5MG-325MG 1 EA TAB PO PRN (10:00)
[2020-01-02] MEDS ORDERED: MORPHINE SULFATE 2 MG/ML SYR 1ML IV PRN (10:15)
[2020-01-02] MEDS: CIPROFLOXACIN 400 MG/D5W 200ML 200 ML IV SCH ×3 (12:00→23:43)
--- NOTE | 2020-01-02 18:38 | NUR ---
PT RESTING ON BED BED SIDE REPORT GIVEN TO ONCOMING NURSE
[2020-01-03 00:19] VITALS: BP 118/84
[2020-01-03 04:51] VITALS: BP 117/80
[2020-01-03 05:57] LABS: BASOPHILS # (AUTO) 0.1 (0.0-0.1); BASOPHILS % 0.8 % (0.0-1.0); EOSINOPHILS # (AUTO) 0.1 (0.0-0.4); EOSINOPHILS % 1.6 % (0.0-6.0); HEMATOCRIT 38.3 % (38.2-49.6); HEMOGLOBIN 13.4 g/dL (14.0-18.0); LYMPHOCYTES # (AUTO) 1.7 (1.0-3.2); LYMPHOCYTES % 26.9 % (18.0-39.1); MEAN CORPUSCULAR HEMOGLOBIN 30.9 pg (28-32); MEAN CORPUSCULAR VOLUME 88.5 fL (81-99); MONOCYTES # (AUTO) 0.8 (0.2-0.8); MONOCYTES % 12.5 % (4.4-11.3); NEUTROPHILS # (AUTO) 3.6 (2.1-6.9); NEUTROPHILS % 57.7 % (38.7-80.0); PLATELET COUNT 245 x10e3/uL (140-360); RED BLOOD COUNT 4.33 x10e6/uL (4.3-5.7)
[2020-01-03 06:24] LABS: ANION GAP 11.4 mmol/L (8-16); BLOOD UREA NITROGEN < 5 mg/dL (7-26); CALCIUM 8.7 mg/dL (8.4-10.2); CARBON DIOXIDE 31 mmol/L (22-29); CHLORIDE 104 mmol/L (98-107); CREATININE, SERUM 0.83 mg/dL (0.72-1.25); EST GLOMERULAR FILTRATION RATE > 60 ML/MIN (60-); GLUCOSE 107 mg/dL (74-118); MAGNESIUM 1.6 MG/DL (1.3-2.1); POTASSIUM 3.4 mmol/L (3.5-5.1); SODIUM 143 mmol/L (136-145)
[2020-01-03] MEDS ORDERED: SODIUM CHLORIDE FLUSH 10 ML SYR INJ PRN (06:30)
[2020-01-03] MEDS ORDERED: SODIUM CHLORIDE 0.9% 250ML IRRIG IR SCH (06:30)
[2020-01-03 06:40] LABS: BUN/CREATININE RATIO 6 (6-25)
[2020-01-03 07:55] VITALS: BP 114/68
[2020-01-03 07:57] VITALS: BP 114/76
[2020-01-03] MEDS: FAMOTIDINE 20 MG TAB PO SCH ×2 (08:32→16:24)
[2020-01-03] MEDS: METRONIDAZOLE 500MG/NS 100ML 100 ML IV SCH (08:33)
[2020-01-03] MEDS ORDERED: CIPRO500 MG PO (10:22)
[2020-01-03] MEDS ORDERED: METRONIDAZOLE500 MG PO (10:22)
[2020-01-03] MEDS ORDERED: TYLENOL WITH C1 EACH PO (10:22)
[2020-01-03] MEDS ORDERED: POTASSIUM CHLORIDE 20 MEQ TAB CR PO SCH (10:30)
[2020-01-03] MEDS ORDERED: HYDROCODONE/APAP 5MG-325MG TAB PO PRN (10:45)
[2020-01-03] MEDS: CIPROFLOXACIN 400 MG/D5W 200ML 200 ML IV SCH (11:50)
[2020-01-03 12:12] VITALS: BP 110/77
[2020-01-03 16:00] VITALS: BP 104/70
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
--- NOTE | 2020-01-03 18:47 | NUR ---
Pt discharged home at this time. 0 s/s of acute distress noted at time of discharge. Pt education provided for post surgical care and incision care. Pt verbalized understanding of all discharge instructions and follow up appointments. Surgical incision to abdomen is dry and intact. Pt received prescriptions for medications and verbalized understanding of medication compliance.
== END 2020-01-03 18:47 | disposition home or self-care (01) | DRG 854 ==
LOC: ER 20:15 → ERHOLD 12-28 00:18 → MED/SURG3 12-28 00:50 → OBSVTOIN 12-29 12:04 → MED/SURG 12-31 18:00
PROVIDERS: ADMIT Internal Medicine; ATTEND Internal Medicine
PROC: 0W9F4ZZ Drainage of Abdominal Wall, Percutaneous Endoscopic Approach (ICD-10-PCS; 2019-12-31)
PROC: 0DBN0ZZ Excision of Sigmoid Colon, Open Approach (ICD-10-PCS; principal; 2019-12-31 12:58)
DX: A41.9 Sepsis, unspecified organism (principal); K57.20 Diverticulitis of large intestine with perforation and abscess without bleeding; K56.1 Intussusception; E83.42 Hypomagnesemia; E87.6 Hypokalemia; K76.89 Other specified diseases of liver; F12.10 Cannabis abuse, uncomplicated; F10.21 Alcohol dependence, in remission
CPT/HCPCS: 36415; 74177; 76705; 80048; 80053; 80061; 81001; 83735; 84100; 84443; 85025; 87400; 88307; 93005; 96361; 96374; 99284; G0378; J1100; J1885; J2001; J2175; J2250; J2270; J2405; J2543; J2710; J3010; J7030; Q9967

== ENCOUNTER 2020-12-22 23:36 | Emergency (ER) | payer SELFPAY ==
[~2020-12-22] VITALS: Ht 162.6 cm; Wt 65.3 kg
[~2020-12-22 23:36] MED LIST: CIPRO500 MG PO; METRONIDAZOLE500 MG PO; TYLENOL WITH C1 EACH PO
[2020-12-23 05:01] VITALS: BP 128/67
== END 2020-12-23 02:35 | disposition home or self-care (01) ==
LOC: ER 12-23
DX: S06.0X0A Concussion without loss of consciousness, initial encounter (principal); Y04.0XXA Assault by unarmed brawl or fight, initial encounter; Y92.512 Supermarket, store or market as the place of occurrence of the external cause; E78.5 Hyperlipidemia, unspecified; K21.9 Gastro-esophageal reflux disease without esophagitis; Z98.0 Intestinal bypass and anastomosis status
CPT/HCPCS: 70450; 70486; 72125; 99283

== ENCOUNTER 2025-05-20 21:12 | Emergency (ER) | payer SELFPAY ==
[~2025-05-20] VITALS: Ht 165.1 cm; Wt 80.7 kg
[2025-05-20 21:20] VITALS: TEMP 98.8
[2025-05-20 22:15] LABS: BASOPHILS % 0.5 % (0.0-1.0); EOSINOPHILS % 1.3 % (0.0-6.0); LYMPHOCYTES % 26.2 % (18.0-39.1); MONOCYTES % 8.2 % (4.4-11.3); NEUTROPHILS % 63.2 % (38.7-80.0); RED CELL DISTRIBUTION WIDTH 12.6 % (11.7-14.4)
[2025-05-20 22:57] LABS: EST GLOMERULAR FILTRATION RATE 78.0 ML/MIN (>=60)
[2025-05-20] MEDS ORDERED: IOPAMIDOL 370 MG/ML 100 ML INFUS..BTL INJ ONE (23:10)
[2025-05-21 02:30] VITALS: PULSE 83; RESP 19
[2025-05-21 02:54] VITALS: BP 148/97; PULSE 83; RESP 17; TEMP 98.3; O2SAT 98
== END 2025-05-21 02:56 | disposition home or self-care (01) ==
LOC: ER 22:10
DX: R10.31 Right lower quadrant pain (principal); K43.9 Ventral hernia without obstruction or gangrene; K57.90 Diverticulosis of intestine, part unspecified, without perforation or abscess without bleeding; E78.5 Hyperlipidemia, unspecified; K21.9 Gastro-esophageal reflux disease without esophagitis; Z98.0 Intestinal bypass and anastomosis status; F17.210 Nicotine dependence, cigarettes, uncomplicated
CPT/HCPCS: 36415; 71045; 74177; 80053; 84484; 85025; 93005; 99284; Q9967